=== PATIENT | female | born 1945 | race Caucasian/White ===

== ENCOUNTER → 2022-07-12 11:36 | Outpatient (CLI) | payer MEDICARE, OTHER, SELFPAY ==
--- NOTE | 2022-07-12 11:37 | NM_ITS ---
APPROVED REPORT Exam: Nuclear Stress Test Indication: chest pain..palpitations..fatigue Patient Location: Outpatient Stress Tech: Karina Pichardo [place] Tech:Alexa Hartley, ARRT, RT (R)(N) Ht: 5 ft 5 in Wt: 148 lbs Bra Size: 38d HR: 32 bpm BP: 160/58 mmHg BSA: 1.74 m2 TID: 1.60 BMI: 24.6 History: chest pain..palpitations..fatigue Procedure: Patient received a 0.4 mg of intravenous Lexiscan, resting heart rate 32 bpm, resting blood pressure 160/58 mmHg, with Lexiscan maximum heart rate achived was 111 bpm which is Less than 85 % of the maximum predicted heart rate and blood pressure was 161/69 mmHg. With Lexiscan, patient denied any complaint of chest pain. Electrocardiogram Resting electrocardiogram shows sinus rhythm, with Lexiscan there is less than 1.[address] segment depression noted from the baseline EKG. The EKG portion of the Lexiscan is nondiagnostic. Cardiac Stress and Resting SPECT Images: Cardiac Stress and Resting SPECT images were obtained using technetium 99m Myoview 32.1 mCi stress and 10.08 mCi at rest. Gated SPECT for analysis of segmental wall motion and calculation of the ejection fraction also done. Cardiac stress and rest SPECT images show uniform myocardial activity without segmental perfusion abnormality, computer derived ejection fraction is 62% with no regional wall motion abnormality, however there is transient ischemic dilatation of the left ventricle seen, raising the concerns for presence of balanced ischemia. Conclusion: 1. The EKG portion of the Lexiscan is nondiagnostic. 2. No scintigraphic evidence of reversible ischemia seen, computer derived ejection fraction is 62% with no regional wall motion abnormality, there is transient ischemic dilatation of the left ventricle seen of 1.62,, raising the concerns for presence of balanced ischemia. 3. Abnormal Lexiscan Myoview study. Electronically signed by : Francisco Gutierrez MD 07/12/2022 19:24:31
--- NOTE | 2022-07-12 12:42 | CA_ITS ---
APPROVED REPORT EXAM: Comprehensive 2D, Doppler, and color-flow Echocardiogram Creative/Art Director: Carolina Andersen RT(R) Ht: 5 ft 5 in Wt: 150lbs BSA: 1.75 BP: 130/73 mmHg Indications: angina, CP, palpitations, HTN, ROLDAN, CAD, hyperlipidemia, CAD. 2D Dimensions LVOT 1.86 cm (M/F) 1.5-2.5 M-Mode Dimensions RVDd 1.78 cm (0.9-2.6) LA Diam 3.51 cm (1.9-4.0) LVDd 4.50 cm (3.5-5.7) Ao Diam 2.44 cm (2.0-3.7) LVDs 3.21 cm (3.5-5.7) IVSd 0.75 cm (0.6-1.1) PWd 0.68 cm (0.6-1.1) EF (Teich) 55.30% FS 28.70% EDV (Teich) 92.40 mL ESV (Teich) 41.30 mL LV Diastology E Decel Time 253.00 (160-240 msec) E/A Ratio 0.9 MED E' 7.30 (< 7 cm/sec) E'/MED E' Ratio 10.93 (>14) LAT E' 9.20 (<10 cm/sec) E/LAT E' Ratio 8.67 (>14) Mitral Valve MV E Max Good. 80.00 (40-130 cm/s) MV A Velocity 90.00 (40-130 cm/s) E/A Ratio 0.89 MV Decel. Time 253.00 (160-240 ms) MV PHT 74.00 ms Left Ventricle Left atrium is mildly enlarged, left ventricle is normal size mild concentric left ventricular hypertrophy, estimated ejection fraction 55% with no regional wall motion abnormality, grade 1 diastolic dysfunction seen without tissue Doppler evidence of raise left atrial pressure. Right Ventricle Right atrium and right ventricle are normal size and contractility. Aortic Valve Aortic valve is minimally thickened and calcified without aortic stenosis or aortic insufficiency. Mitral Valve Mitral valve is grossly normal, there is trace mitral regurgitation. Tricuspid Valve Tricuspid valve grossly normal, there is trace tricuspid regurgitation, tricuspid regurgitation jet velocity is inadequate for calculation of the right ventricular systolic pressure. Pulmonic Valve Pulmonic valve is poorly visualized. Great Vessels Aortic root is normal size. Inferior vena cava is poorly visualized. Pericardium No significant pericardial effusion noted. Conclusion 1. Mildly enlarged left atrium, normal left ventricular size mild concentric left ventricular hypertrophy, estimated ejection fraction 55% with no regional wall motion abnormality, grade 1 diastolic dysfunction seen without tissue Doppler evidence of raise left atrial pressure. 2. Trace mitral and tricuspid regurgitation. 3. No significant pericardial effusion noted. 4. Inferior vena cava is poorly visualized. Electronically signed by : Francisco Gutierrez MD 07/13/2022 05:53:09
--- NOTE | 2022-07-12 13:25 | CA_ITS ---
APPROVED REPORT Exam: Pharmacologic Technologist: Karina Fernandez, Ht: 5 ft 5 in Wt: 150 lbs BSA: 1.75 m2 HR: 55 bpm BP: 160/58 mmHg Medical History Medications: Asa,,,,, Pantoprazole,,,,, Crestor,,,,, TriaM/HCTZ,,,,, Probiotic,,,,, ZYRTEC,,,,, BisOPROLOL,,,,, Voltaren,,,,, Citracal,,,,, Xyzal,,,,, Stress Test Details Test: LEXISCAN Reason for pharmacologic stress test: physical limitation. HR Resting HR: 32 bpm Max Heart Rate (APMHR): 144.874973 bpm Max HR Achieved: 111 bpm Target HR (85% APMHR): 122.624211 bpm % of APMHR: 77.08 Recovery HR: 93 bpm BP Resting BP: 160/58 mmHg Max BP: 161/69 mmHg Recovery BP: 138.0/76.0 mmHg ECG Clinical Exercise duration: 04:00 min Highest Stage Achieved: Stress ECG Conclusion Symptoms: SOA Arrhythmias/Ectopy: Occasional PAC/PVC ST-T Changes: <1.5mm ST Changes Test Summary REST . . . . . . . Resting REST 05:42 . . 32 . 160/ 58 . . Stage 1 01:00 . . 106 . . . . Stage 2 01:00 . . 109 . 142/ 72 . . Stage 3 01:00 . . 86 . 161/ 69 . . Stage 4 01:00 . . 88 . 136/ 70 . Stop exercise at 04:00 RECOVERY 01:00 . . 74 . 126/ 73 . . RECOVERY 02:00 . . 95 . 135/ 76 . . RECOVERY 02:02 . . 87 . 135/ 76 . . Electronically signed by : Francisco Gutierrez MD 07/12/2022 19:21:06
--- NOTE | 2022-07-12 13:56 | HMH.ITSHM ---
Current Home Medications as stated by this patient Julissa Jeffrey or sales representative. []BISOPROLOL PANTOPRAZOLE TRIAMTERENE HCTZ ROSUVASTATIN
== END ==
PROVIDERS: PCP Family Medicine; Visit Provider Internal Medicine
DX: E78.2 Mixed hyperlipidemia (principal); I10 Essential (primary) hypertension; I25.10 Atherosclerotic heart disease of native coronary artery without angina pectoris; K21.9 Gastro-esophageal reflux disease without esophagitis; R06.02 Shortness of breath
CPT/HCPCS: 78452; 93017; 93306; A9502; J2785

== ENCOUNTER → 2023-01-10 12:00 | Outpatient (CLI) | payer MEDICARE, OTHER, SELFPAY ==
[2023-01-10 12:36] LABS: Basophils % 0.3 % (0.1-2.0); Eosinophils # 0.2 K/mm3 (0.0-0.4); Eosinophils % 3.4 % (0.1-12.0); Hematocrit 46.9 % (37.0-47.0); Hemoglobin 14.9 g/dL (12.2-16.2); Lymphocytes # 3.2 K/mm3 (0.7-4.5); Lymphocytes % 45.4 % (10-50); Mean Corpuscular HGB Conc 31.9 g/dL (31.8-35.4); Mean Corpuscular Hemoglobin 29.2 pg (27.0-31.2); Mean Corpuscular Volume 91.6 fl (81-99); Mean Platelet Volume 8.2 fl (7.4-10.4); Monocytes # 3.4 K/mm3 (0.1-1.0); Monocytes % 48.2 % (1.7-9.3); Neutrophils # 0.2 K/mm3 (1.8-7.8); Platelet Count 196 K/mm3 (142-424); Red Blood Count 5.12 M/mm3 (4.20-5.40); Red Cell Distribution Width 13.3 % (11.5-17.5); White Blood Count 7.1 K/mm3 (4.8-10.8)
[2023-01-10 12:39] LABS: Neutrophils % 2.6 % (37.0-80.0)
[2023-01-10 12:40] LABS: MANUAL DIFFERENTIAL MANUAL DIFFERENTIAL (MANUAL DIFF)
[2023-01-10 13:26] LABS: Alanine Aminotransferase 25 U/L (12-78); Albumin Level 4.4 g/dl (3.5-5.0); Alkaline Phosphatase 117 U/L (38-126); Anion Gap 15.6 mEq/L (5-15); Aspartate Amino Transferase 33 U/L (14-36); Bilirubin,Indirect 0.6 mg/dL (0.0-0.9); Bilirubin,Total 0.6 mg/dl (0.2-1.3); Bilirubin,Unconjugated 0.7 mg/dL (0.0-1.1); Blood Urea Nitrogen 17 mg/dl (7-17); Calcium 9.6 mg/dl (8.4-10.2); Carbon Dioxide 28 mmol/L (22.0-30.0); Chloride 102 mmol/L (98-107); Chol/HDL Ratio 2.9 (1-3.5); Cholesterol 135 mg/dl (140-200); Estimated Glomerular Filt Rate 81 ml/min (>60); GFR (African American) 98 ML/MIN (>60); Glucose 108 mg/dl (74-100); HDL Cholesterol 46 mg/dl (40-60); Potassium 4.6 mmoL/L (3.5-5.1); Sodium 141 mmol/L (136-145); Total Protein,Serum 6.9 g/dl (6.3-8.2); Triglycerides 135 mg/dl (30-150); VLDL Cholesterol 27 mg/dL (0-40)
[2023-01-10 13:36] LABS: Direct LDL Cholesterol 69.69 mg/dL (100-129)
[2023-01-10 13:42] LABS: Free T4 (Free Thyroxine) 0.87 ng/dl (0.78-2.19)
[2023-01-10 13:56] LABS: Thyroid Stimulating Hormone 1.13 uIU/mL (0.465-4.68)
[2023-01-10 17:36] LABS: Eosinophils % 1 % (0-3); Lymphocytes % 26 % (10-50); Monocytes % 7 % (2-9); Neutrophils % 66 % (42-76); Total Cells Counted 100
[2023-01-10 17:37] LABS: Platelet Estimate Normal; RBC Morphology Normal
[2023-01-17 20:45] LABS: 1,25 Dihydroxy Vitamin D 74 pg/mL (.); 1,25-Dihydroxy, Vitamin D-2 <10 pg/mL (.); 1,25-Dihydroxy, Vitamin D-3 72 pg/mL (.)
== END ==
PROVIDERS: PCP Family Medicine; Visit Provider Internal Medicine
DX: E11.9 Type 2 diabetes mellitus without complications (principal); E78.2 Mixed hyperlipidemia; I25.10 Atherosclerotic heart disease of native coronary artery without angina pectoris; R00.2 Palpitations; R06.02 Shortness of breath; R07.9 Chest pain, unspecified; I11.9 Hypertensive heart disease without heart failure; R06.00 Dyspnea, unspecified; I63.9 Cerebral infarction, unspecified; E67.3 Hypervitaminosis D
CPT/HCPCS: 36415; 80048; 80061; 80076; 82652; 84439; 84443; 85007; 85025

== ENCOUNTER 2023-09-21 06:39 | Outpatient (CLI) | payer MEDICARE, OTHER, SELFPAY ==
--- NOTE | 2023-09-21 06:50 | CT_ITS ---
APPROVED REPORT Watch Hairspring Assembler: CLINICAL INDICATION Chest Pain TECHNIQUE Image Acquisition: A 128 slice MDCT scanner (NetManagea View) was used for data acquisition. A noncontrast coronary calcium scan was performed. A CT attenuation threshold of 130 Hounsfield units (HU) was used for the detection of calcium in contiguous voxels of 1 sq mm in area to be counted as individual lesions. Bolus tracking in the ascending aorta with a threshold of 180 HU was performed. Immediately afterwards, ECG synchronized cardiac CT was then performed from the cardiac base to apex using retrospective gating with ECG tube current modulation. A total of 85 mL of Isovue 370 mg/mL contrast medium was administered at 5 mL/sec followed by a saline flush using a biphasic injection protocol. A tube voltage of 120 KVp was used. The patient received the following medications prior to the cardiac CT. 0.8 mg of sublingual nitroglycerin The average heart rate at the time of acquisition was 44 bpm and regular. Image Reconstruction Transaxial images were reconstructed at 0.67 mm slide thickness. Data was reviewed interactively on an advanced workstation capable of 2 and 3-dimensional displays in all conventional reconstruction formats, including multiplanar reformations, maximum intensity projections, curved multiplanar reformations, and volume rendered reconstructions. When applicable, selected routine images describing the relevant coronary anatomy and pathology were saved and sent to PACS. Complications None Technical Quality Overall image quality was good. Coronary artery opacification was adequate. Total DLP (Dose-Length Product) is 1664.5 mGy-cm. The reported value represents the total of one or more individual components during the CT acquisition of this date and at this time, and as such, the same value may appear in more than one CT report depending on the interpreting/reporting physicians. COMPARISON None FINDINGS CT Coronary Calcium Scoring LMA (Left Main Artery) = 0 LAD (Left Anterior Descending) = 129 LCX (Left Coronary Circumflex) = 21 RCA (Right Coronary Artery) = 34 Total Calcium Score = 184 using the AJ-130 method. The observed calcium score of 184 is at 67th percentile for subjects of the same age, sex, and race/ethnicity. The interpretation of the calcium heart score is based on the following continuum*: 0 = no calcified plaque detected (risk of coronary artery disease is very low ??? less than 5%) 1-10 = calcium detected in extremely minimal levels (risk of coronary diseases is still low ??? less than 10%) 11-100 = mild levels of plaque detected with certainty (mild or minimal narrowing of heart arteries is likely) 101-400 = definite,at least moderate levels of plaque detected (relatively high risk of a heart attack within 3-5 years) >401-999 = extensive levels of plaque detected (high risk of heart attack, high levels of vascular disease are present, high likelihood of at least one significant coronary narrowing) *The calcium heart score quantifies the burden of coronary calcification/plaque in the coronary arteries. The calcium heart score is not able to evaluate the presence or burden of non-calcified (i.e. soft) plaque. There is also identifiable calcification in the ascending and descending thoracic aorta and aortic valve. Coronary CT Angiography The coronary arterial system is right dominant. Quantitative Stenosis Grading: Left Main (LM): The left main originates normally from the left sinus of Valsalva. The LM trifurcates into the left anterior descending artery, ramus intermedius, and left circumflex artery. The LM is patent with no evidence of atherosclerosis. Left Anterior Descending (LAD) and Diagonal Branches: The LAD gives off 3 diagonal branch(es). There is mixed calcified/noncalcified plaque in the proximal and mid LAD. In the proximal segment, there are minimal luminal irregularities. In the mid LAD, there is mild 25-50% luminal stenosis present. There is no evidence of LAD-myocardial bridge. Ramus-intermedius (RI): The RI is patent. Left Circumflex (LCX) and Obtuse Marginals (OM): The LCX gives off 1 Obtuse Marginal (OM) branch. There is mild calcification in the proximal LCx, but with no evidence of luminal stenosis. Right Coronary Artery (RCA): The RCA originates normally from the right sinus of Valsalva. The RCA gives off a posterior descending artery (PDA) and posterolateral (PL) branches. There is mixed calcified/noncalcified plaque noted in the ostial (mild 25-50% luminal stenosis) and proximal RCA (mild 30-50 luminal stenosis). Non-Coronary Cardiac Findings: Analysis of the left ventricular (LV) structure and function was performed after 3-D reconstruction of the LV from axial images, with user-corrected automatic contouring for assessment of LV volumes and user-defined reconstruction from oblique planes for measurement of 3-D cardiac structure and function. -The left ventricle systolic function is normal (LVEF 59%) -There is no left atrial appendage filling defect. Two right pulmonary veins and two left pulmonary veins drain normally into the left atrium. -No pericardial thickening or calcification. -Central and branch pulmonary arteries in the [id number] are unremarkable. -Thoracic aorta within the visualized thoracic aortic-branches in the hyqlw-rz-daes is unremarkable. Extracardiac Structures No significant extra-cardiac findings. Note, however, that this study is focused on the cardiac findings. IMPRESSION -Presence of coronary calcification with an Agatston score = 184 using the AJ-130 method. -The observed calcium score of 184 is at 67th percentile for subjects of the same age, sex, and race/ethnicity. -Mild atherosclerosis in the RCA and the LAD (25-50% luminal stenosis), but overall no evidence of significant flow-limiting atherosclerosis of the coronary arteries. -CAD-RADS 2. Management recommendations per ACC/AHA guidelines*, as clinically appropriate. *Recommendations: CAD RADS 0: Reassurance. Consider non-atherosclerotic causes of chest pain. CAD RADS 1: Consider non-atherosclerotic causes of chest pain. Consider preventive therapy and risk factor modification. CAD RADS 2: Consider non-atherosclerotic causes of chest pain. Consider preventive therapy and risk factor modification, particularly for patients with nonobstructive plaque in multiple segments. CAD RADS 3: Consider further functional testing. Consider symptom-guided anti-ischemic and preventive pharmacotherapy as well as risk factor modification per published guideline statements. CAD RADS 4A: Consider further functional testing or invasive coronary angiography with revascularization per published guideline statements. Consider symptom-guided anti-ischemic and preventive pharmacotherapy as well as risk factor modification per published guideline statements. CAD RADS 4B: Invasive coronary angiography recommended with revascularization per published guideline statements. Consider symptom-guided anti-ischemic and preventive pharmacotherapy as well as risk factor modification per published guideline statements. CAD RADS 5: Consider invasive angiography and/or viability assessment with revascularization per published guideline statements. Consider symptom-guided anti-ischemic and preventive pharmacotherapy as well as risk factor modification per published guideline statements. CRITICAL RESULT None COMMUNICATION Per this written report The coronary and cardiac findings of this CCTA were reviewed, reported, and signed by Lake Nunez MD (Game Designer/Creative Director) Conclusion Electronically signed by : Nahed Nunez MD 09/26/2023 15:19:29
[2023-09-21 07:25] VITALS: BMI 24.7
[2023-09-21 07:40] LABS: Chloride 105 mmol/L (98-107); Potassium 3.8 mmoL/L (3.5-5.1); Sodium 140 mmol/L (136-145)
[2023-09-21 07:43] LABS: Anion Gap 2.8 mEq/L (5-15); Blood Urea Nitrogen 14 mg/dl (7-17); Carbon Dioxide 36 mmol/L (22.0-30.0); Creatinine Clearance Estimated 50 mL/min (50-200); Estimated Glomerular Filt Rate 70 ml/min (>60); GFR (African American) 84 ML/MIN (>60)
[2023-09-21 07:44] LABS: Calcium 9.4 mg/dl (8.4-10.2); Glucose 92 mg/dl (74-100)
[2023-09-21 08:05] VITALS: BP 153/80; PULSE 59; RESP 16; O2SAT 98
[2023-09-21] MEDS: NITROGLYCERIN 0.4MG SL TABLET SL (08:05)
[2023-09-21 08:07] VITALS: BP 150/84; PULSE 59; RESP 16; O2SAT 97
[2023-09-21 08:10] VITALS: BP 112/61; PULSE 55; RESP 16; O2SAT 98
[2023-09-21 08:22] VITALS: BP 127/74; PULSE 58; RESP 16; TEMP 36.7; O2SAT 98
[2023-09-21] MEDS: IOPAMIDOL-370 (76%);100ML BOTTLE 85 ML IV (08:41)
[2023-09-21] MEDS: 0.9 % SODIUM CHLORIDE 50 ML VIAL IV (08:41)
== END 2023-09-21 08:22 | disposition home or self-care (01) ==
PROVIDERS: PCP Family Medicine; Visit Provider Internal Medicine
DX: E78.5 Hyperlipidemia, unspecified (principal); I10 Essential (primary) hypertension; I25.10 Atherosclerotic heart disease of native coronary artery without angina pectoris; K21.9 Gastro-esophageal reflux disease without esophagitis; R00.2 Palpitations; R06.00 Dyspnea, unspecified; R07.9 Chest pain, unspecified; R55 Syncope and collapse
CPT/HCPCS: 75571; 75574; 80048; Q9967

== ENCOUNTER 2023-09-27 09:31 | Outpatient (CLI) | payer MEDICARE, OTHER, SELFPAY ==
--- NOTE | 2023-09-27 09:32 | MR_ITS ---
APPROVED REPORT Tube Trailer Filler: CLINICAL INDICATION Suspected LVH on TTE TECHNIQUE Image Acquisition: Cardiac magnetic resonance (CMR) was performed on Siemens Espree MRI 1.5T scanner. Software platform sequences were performed using the Siemens Exeger [place] AB MR B19 platform. A set of three-plane, low-resolution, large [id number] localizers were initially acquired. Then axial, coronal, sagittal TrueFISP, as well as axial HASTE images, were obtained. These were followed by gated TrueFISP breathold cinematic sequences obtained in the short axis with 8 mm slices and 2 mm gaps, 2-chamber (vertical long axis), 3-chamber, 4-chamber (horizontal long axis). A bolus of contrast was injected intravenously with first-pass sequences obtained in the short axis and four-chamber planes. After approximately 10 minutes, a TI manager of regulatory affairs sequence was performed to determine the optimal TI time. Using the optimized TI time, delayed contrast enhancement segmented inversion???recovery TurboFLASH sequences were obtained in the short axis, 2-chamber, 3-chamber, and 4-chamber projections. 2D-velocity phase mapping was performed. Functional parameters were calculated by offline analysis on an independent workstation ([employer] Platform, [employer]). Contrast: ProHance??? (Gadoteridol) FINDINGS MORPHOLOGY AND FUNCTION Left ventricle: The left ventricle is normal in size. The indexed left ventricular end-diastolic volume (LVEDVi) is 64 ml/m2 (reference range 57-105 ml/m2 in males, 56-96 ml/m2 in females). Normal left ventricular systolic function is present. There is normal left ventricular wall thickness. There are no regional wall motion abnormalities noted. LVEF is calculated at 72.5 % (reference range 57-77%). Right ventricle: The right ventricle is normal in size. The indexed right ventricular end-diastolic volume (RVEDVi) is 77 ml/m2 (reference range 61-121 ml/m2 in males, 48-112 ml/m2 in females). Normal right ventricular systolic function is present. RVEF is calculated at 66.4% (reference range 52-72% in males, 51-71% in females). Atria: The left atrium is normal in size. The maximum indexed left atrial volume is 27 ml/m2 (reference range 26-52 ml/m2 in males, 27-53 ml/m2 in females). The right atrium is normal in size. The maximum indexed right atrial volume is 32 ml/m2 (reference range 18-90 ml/m2). Aorta: The diameter of the aortic annulus is normal, measuring 26 mm (coronal view reference range 21-30 mm in males, 19-27 mm in females). The diameter of the aortic sinus is normal, measuring 30 mm (coronal view reference range 25-42 mm in males, 24-36 mm in females). The diameter of the sinotubular junction is normal, measuring 25 mm (coronal view reference range 18-32 mm in males, 18-28 mm in females). The diameters of the ascending and descending thoracic aorta are normal. Main pulmonary artery: The main pulmonary artery diameter is normal. Pericardium: The pericardial thickness is normal. The pericardial thickness measures 1.0 cm (normal < 4.0 cm). There is no pericardial effusion. VALVES The valvular morphologies in the visualized sequences appear normal. There is no significant valvular stenosis or regurgitation of the mitral, aortic, tricuspid, or pulmonic valve noted visually. Systolic anterior motion of the mitral valve is not visualized. Ratio of pulmonary to systemic flow, Qp:Qs ratio = 0.9 (normal < or = 1.2), demonstrating no evidence of hemodynamically significant shunt. TISSUE CHARACTERIZATION Resting Perfusion: Normal myocardial blood flow at rest. No evidence of resting hypoperfusion. Myocardial Fibrosis and/or edema: Normal gadolinium kinetics are present. No evidence of late gadolinium enhancement is noted, consistent with absence of myocardial scarring, infarction, or necrosis. T2-weighted imaging demonstrates no evidence of myocardial edema or inflammation. OTHER Elevated right hemidiaphragm is noted. IMPRESSION Normal LV size with normal LV systolic function. LVEDVi= 64 ml/m2 and LVEF= 72.5%. Normal LV wall thickness. Normal RV size with normal RV systolic function. RVEDVi= 77 ml/m2 and RVEF= 66.4%. No atrial enlargement. No CMR evidence of myocardial scarring, infarction, or necrosis. No evidence of myocardial edema or inflammation. Perfusion analysis demonstrates normal blood flow at rest with no evidence of resting hypoperfusion. Ratio of pulmonary to systemic flow, Qp:Qs ratio = 0.9 (normal < or = 1.2), demonstrating no evidence of hemodynamically significant shunt. Overall, this CMR demonstrates normal biventricular systolic size and function with normal LV wall thickness. No evidence of infiltrative cardiomyopathy. COMPARISON None CRITICAL RESULT None COMMUNICATION Per this written report The findings of this cardiac MR were reviewed, reported, and signed by Lake Nunez MD (Audio Visual Manager). Conclusion Electronically signed by : Nahed Nunez MD 10/07/2023 09:45:04
[2023-09-27] MEDS: SODIUM CHLORIDE 0.9% 50ML BAG 25 ML IV (11:46)
[2023-09-27] MEDS: GADOTERIDOL INJ 17ML SYRINGE 15 ML IV (11:46)
[2023-09-27] MEDS: SODIUM CHLORIDE 0.9% 10ML SYR (RAD ONLY) 10 ML IV (11:46)
== END 2023-09-27 23:59 ==
LOC: RAD 09:32
PROVIDERS: PCP Family Medicine; Visit Provider Internal Medicine
DX: E78.5 Hyperlipidemia, unspecified (principal); I10 Essential (primary) hypertension; I25.10 Atherosclerotic heart disease of native coronary artery without angina pectoris; K21.9 Gastro-esophageal reflux disease without esophagitis; R00.2 Palpitations; R06.00 Dyspnea, unspecified; R07.9 Chest pain, unspecified; R55 Syncope and collapse; R94.31 Abnormal electrocardiogram [ECG] [EKG]
CPT/HCPCS: 75561; A9576

== ENCOUNTER 2023-10-07 07:41 | Outpatient (CLI) | payer MEDICARE, OTHER, SELFPAY ==
--- NOTE | 2023-10-07 07:42 | CA_ITS ---
FINAL REPORT TECHNIQUE: Color Doppler, duplex Doppler and gar scale sonography of the bilateral neck vasculature was performed. Velocities were measured in the carotid arteries. Stenosis evaluation based on velocity criteria. CLINICAL HISTORY: dizziness, HTN, HLD COMPARISON: None FINDINGS: The peak systolic velocity of the right common carotid artery is 79 cm/sec and internal carotid artery 106 cm/sec. The diastolic velocity in the internal carotid artery is 36 cm/sec. The ICA/CCA ratio is 1.8. Visually, a moderate amount of plaque is seen.. These findings are consistent with less than 50% stenosis. The external carotid artery is patent. The right vertebral artery is patent with antegrade flow. The peak systolic velocity of the left common carotid artery is 61 cm/sec and internal carotid artery 89 cm/sec. The diastolic velocity in the internal carotid artery is 27 cm/sec. The ICA/CCA ratio is 1.7. Visually, a moderate amount of plaque is seen. These findings are consistent with less than 50% stenosis. The external carotid artery is patent. The left vertebral artery is patent with antegrade flow. IMPRESSION: No evidence of significant carotid stenosis. Bilateral patent vertebral arteries. If indicated, CTA or MRA could further evaluate. Reviewed, Interpreted and Dictated by Julien Hays III, MD Transcribed by Maria Fernanda Hurley Authenticated and [facility]
--- NOTE | 2023-10-07 08:25 | US_ITS ---
FINAL REPORT CLINICAL HISTORY: ruq pain COMPARISON: None FINDINGS: Sonographic images of the right upper quadrant were obtained. The pancreas is partially obscured. There is mild increased echotexture of the liver consistent with mild fatty infiltration. The gallbladder appears normal without evidence of gallstones.There is no evidence of biliary ductal dilatation.The common duct measures 2 mm. Limited images of the right kidney are unremarkable. IMPRESSION: Mild fatty infiltration of the liver. No evidence of gallstones or biliary ductal dilatation. Reviewed, Interpreted and Dictated by Julien Hays III, MD Transcribed by Maria Fernanda Hurley Authenticated and . [facility]
== END 2023-10-07 23:59 ==
LOC: RT 07:42
PROVIDERS: PCP Family Medicine; Visit Provider Internal Medicine
DX: R42 Dizziness and giddiness (principal); I11.9 Hypertensive heart disease without heart failure; I25.10 Atherosclerotic heart disease of native coronary artery without angina pectoris; R00.2 Palpitations; R07.9 Chest pain, unspecified; R06.02 Shortness of breath; R55 Syncope and collapse; R10.11 Right upper quadrant pain; R94.31 Abnormal electrocardiogram [ECG] [EKG]; E78.2 Mixed hyperlipidemia; K21.9 Gastro-esophageal reflux disease without esophagitis
CPT/HCPCS: 76705; 93880

== ENCOUNTER 2024-06-12 13:33 | Outpatient (CLI) | payer MEDICARE, SELFPAY ==
--- NOTE | 2024-06-12 13:36 | CA_ITS ---
APPROVED REPORT EXAM: Comprehensive 2D, Doppler, and color-flow Echocardiogram Animal Care Technician: DIANE Recinos, RVS Ht: 5 ft 5 in Wt: 151lbs BSA: 1.76 BP: 110/70 mmHg Indications: Palpitations, CAD, HTN, HLD Echo Enhancing Agent Comments: Poor acoustic windows throughout exam. 2D Dimensions LVDd 4.04 cm F: 3.9 - 5.3 LVEF (Visual) 70.20 % LVDs 2.46 cm F: 2.2 - 3.5 LA Volume 53.20 mL Left Atrium 3.32 cm F: 2.7 - 3.8 LA Volume Index 30.944131 mL/m2 (M/F) 16-34 M-Mode Dimensions RVDd 1.27 cm (0.9-2.6) LA Diam 3.43 cm (1.9-4.0) LVDd 4.86 cm (3.5-5.7) LVDs 2.75 cm (3.5-5.7) IVSd 0.60 cm (0.6-1.1) PWd 0.70 cm (0.6-1.1) EF (Teich) 74.40% EPSs 0.60 cm FS 43.40% EDV (Teich) 110.70 mL TAPSE 2.17 (<1.7) ESV (Teich) 28.30 mL LV Diastology E Decel Time 187 (160-240 msec) E/A Ratio 0.81 MED A' 9.30 cm/s LAT A' 11.00 cm/s Aortic Valve GILA Index 1.27 cm2/m2 AoV Peak Good. 126.0 (50-130 cm/s) AO Peak GR. 6.40 mmHg AO Mean GR. 3.50 (<5 mmHg) AO VTI 31.2 (18-25 cm) GILA (VTI) 2.28 (2.5-4.5 cm2) Mitral Valve MV A Velocity 89.0 (40-130 cm/s) E/A Ratio 0.81 Pulmonary Valve PV Peak Velocity 81.0 (50-150 cm/s) RI End VMAX 115.0 cm/s Tricuspid Valve TR P. Velocity 229.00 cm/s RAP Estimate 10.00 mmHg RVSP 31.00 mmHg Left Ventricle The left ventricle is normal size. The left ventricular systolic function is normal. The left ventricular ejection fraction is within the normal range. There is increased LV wall thickness. There is normal LV segmental wall motion. The left ventricular diastolic function is normal. LVEF is 60%. Right Ventricle The right ventricle is normal size. The right ventricular systolic function is normal. Atria The left atrium size is normal. The right atrium size is normal. The interatrial septum is not well-visualized. Aortic Valve The aortic valve is mildly thickened. There is no aortic valvular stenosis. No aortic regurgitation is present. Mitral Valve The mitral valve is normal in structure. No evidence of mitral valve stenosis. Trace mitral regurgitation. Tricuspid Valve The tricuspid valve leaflets are thin and pliable. Mild tricuspid regurgitation. RVSP is 20-25 mmHg. Pulmonic Valve The pulmonary valve is normal in structure. Mild pulmonic regurgitation. The ascending aorta is not well-visualized. Great Vessels The aortic root is normal in size. The IVC is not well-visualized. Pericardium There is no pericardial effusion. Other Information Study Quality: Technically Difficult Conclusion Technically difficult study due to poor acoustic windows. Normal biventricular systolic function. Mild TR, mild PI. Electronically signed by : Nahed Nunez MD 06/15/2024 00:02:08
== END 2024-06-12 23:59 | disposition home or self-care (01) ==
LOC: RT 13:34
PROVIDERS: PCP Family Medicine; Visit Provider Internal Medicine
DX: I36.1 Nonrheumatic tricuspid (valve) insufficiency (principal); R00.2 Palpitations
CPT/HCPCS: 93306